=== PATIENT | male | born 1945 | race Caucasian/White ===

== ENCOUNTER 2023-09-27 12:26 | Observation (INO) | payer MEDICARE ==
[~2023-09-27] VITALS: Ht 172.7 cm; Wt 71.7 kg
[2023-09-27] MEDS ORDERED: Ondansetron 4 MG TAB PO PRN (15:10)
[2023-09-27] MEDS ORDERED: Acetaminophen 325 MG TABLET PO PRN (15:15)
[2023-09-27] MEDS ORDERED: NS 1,000 ML IV ONE ×2 (15:17→15:35)
[2023-09-27 15:54] LABS: International Normalized Ratio 1.04; Prothrombin Time Results 11.1 Sec (9.7-11.5)
[2023-09-27 16:13] LABS: IMMATURE RETIC FRACTION 17.2 % (2.3-16.0); RETIC HGB EQUIVALENT 15.4 pg (28.20-36.60); RETICULOCYTE COUNT PERCENT 1.47 % (0.50-2.50)
[2023-09-27 16:16] LABS: BASOPHILS ABSOLUTE AUTO 0.07 K/mm3 (0.00-0.23); BASOPHILS PERCENT AUTO 1 % (0-2); EOSINOPHILS PERCENT AUTO 2 % (0-6); Hematocrit 22.5 % (37.0-53.0); Hemoglobin 6.1 g/dL (13.5-17.5); IMMATURE GRAN ABSOLUTE AUTO 0.03 K/mm3 (0.00-0.10); IMMATURE GRAN PERCENT AUTO 1 % (0-1); LYMPHOCYTES ABSOLUTE AUTO 1.64 K/mm3 (0.84-5.20); LYMPHOCYTES PERCENT AUTO 31 % (21-46); MONOCYTES ABSOLUTE AUTO 0.56 K/mm3 (0.16-1.47); MONOCYTES PERCENT AUTO 11 % (4-13); Mean Corpuscular HGB 16.2 pg (26.0-34.0); Mean Corpuscular HGB Conc 27.1 g/dL (31.5-36.5); Mean Corpuscular Volume 60 fL (80-100); Mean Platelet Volume 9.4 fL (9.1-12.4); NEUTROPHILS ABSOLUTE AUTO 2.94 K/mm3 (1.96-9.15); NEUTROPHILS PERCENT AUTO 55 % (41-73); Platelet Count 304 K/mm3 (150-400); RDW Coefficient Variation 20.2 % (11.7-14.2); RDW Standard Deviation 42.4 fL (35.1-46.3); Red Blood Cell Count 3.77 M/mm3 (4.30-5.90); White Blood Cell Count 5.34 K/mm3 (4.00-11.30)
[2023-09-27] MEDS ORDERED: ZINC15 PO (16:19)
[2023-09-27] MEDS ORDERED: IBUP800 PO (16:19)
[2023-09-27] MEDS ORDERED: OMEP20ER PO (16:20)
[2023-09-27] MEDS ORDERED: B12-FOLIC ACID1 EACH PO (16:20)
[2023-09-27 16:28] VITALS: BP 148/77
[2023-09-27 16:32] LABS: Percent Saturation 1.7 % (20.0-50.0)
--- NOTE | 2023-09-27 16:49 | NUR ---
PT ADMIT FROM ED. CURRENTLY INFUSING 1 UNIT, PRBC. ALERT AND ORIENTED X4. ABLE TO MAKE NEEDS KNOWN. SPOUSE AT BEDSIDE. R/A. INDEPENDENT IN THE ROOM.
[2023-09-27 17:30] VITALS: BP 128/77
[2023-09-27 19:46] VITALS: BP 129/72
[2023-09-28 05:01] VITALS: BP 125/77
[2023-09-28 05:22] LABS: BASOPHILS ABSOLUTE AUTO 0.08 K/mm3 (0.00-0.23); BASOPHILS PERCENT AUTO 2 % (0-2); EOSINOPHILS ABSOLUTE AUTO 0.19 K/mm3 (0.00-0.68); EOSINOPHILS PERCENT AUTO 4 % (0-6); Hematocrit 25.9 % (37.0-53.0); Hemoglobin 7.2 g/dL (13.5-17.5); IMMATURE GRAN ABSOLUTE AUTO 0.01 K/mm3 (0.00-0.10); IMMATURE GRAN PERCENT AUTO 0 % (0-1); LYMPHOCYTES ABSOLUTE AUTO 1.45 K/mm3 (0.84-5.20); LYMPHOCYTES PERCENT AUTO 28 % (21-46); MONOCYTES ABSOLUTE AUTO 0.55 K/mm3 (0.16-1.47); MONOCYTES PERCENT AUTO 11 % (4-13); Mean Corpuscular HGB 17.1 pg (26.0-34.0); Mean Corpuscular HGB Conc 27.8 g/dL (31.5-36.5); Mean Corpuscular Volume 62 fL (80-100); Mean Platelet Volume 9.3 fL (9.1-12.4); NEUTROPHILS ABSOLUTE AUTO 2.82 K/mm3 (1.96-9.15); NEUTROPHILS PERCENT AUTO 55 % (41-73); Platelet Count 282 K/mm3 (150-400); RDW Coefficient Variation 21.6 % (11.7-14.2); RDW Standard Deviation 45.9 fL (35.1-46.3); Red Blood Cell Count 4.21 M/mm3 (4.30-5.90)
[2023-09-28 05:34] LABS: International Normalized Ratio 1.08; Prothrombin Time Results 11.5 Sec (9.7-11.5)
--- NOTE | 2023-09-28 05:55 | NUR ---
SHIFT SUMMARY: PATIENT FULLY ORIENTED, COOPERATIVE. NO COMPLAINTS. PATIENT SLEPT WELL.
[2023-09-28 06:02] LABS: Albumin, Blood 3.3 g/dL (3.4-5.0); Albumin/Globulin Ratio 1.1 (0.8-1.8); Bilirubin, Total 0.8 mg/dL (0.1-1.0); Bun/Creatinine Ratio 18.3 (12.0-20.0); Calcium, Blood 8.1 mg/dL (8.5-10.1); Creatinine, Blood 0.88 mg/dL (0.60-1.20); Magnesium, Blood 2.2 mg/dL (1.6-2.4); Potassium, Blood 3.8 mmol/L (3.5-5.5); Thyroid Stimulating Hormone 1.4 uIU/mL (0.360-4.800); Total Protein, Blood 6.3 g/dL (6.4-8.2)
[2023-09-28 07:25] VITALS: BP 123/72
[2023-09-28] MEDS ORDERED: Sod Ferric Gluc Complx/Sucrose 125 MG in NS 100 ML IV SCH (09:00)
[2023-09-28] MEDS ORDERED: NS 250 ML IV PRN (09:25)
[2023-09-28] MEDS ORDERED: ALBU90OI INH (11:27)
[2023-09-28] MEDS ORDERED: FERSU300 PO (11:28)
[2023-09-28] MEDS ORDERED: DOCU100 PO (11:28)
[2023-09-28] MEDS ORDERED: VITAMIN C125 MG PO (11:28)
--- NOTE | 2023-09-28 11:50 | NUR ---
DISCHARGE NOTE MR VASQUEZ WAS DISCHARGED HOME AT 1150HRS. HE WAS ASSISTED TO THE EXIT VIA WHEELCHAIR. HE DENIES ANY PAIN AT TIME OF DISCHARGE AND VOICED EAGERNESS TO GO HOME. HE VERBALISED UNDERSATANDING OF WRITTEN AND VERBAL DISCHARGE INSTRUCTIONS. PIV X 2 REMOVED, TELEMETRY REMOVED. PT HAS BEEN AMBULATING IN ROOM INDEPENDENTLY AND SAID HE IS GENERALLY FEELING BETTER.
[2023-09-29 10:55] LABS: CERULOPLASMIN 22 mg/dL (15-30)
[2023-09-29 11:01] LABS: ZINC,SERUM/PLASMA 56.1 ug/dL (60.0-120.0)
[2023-09-29 15:31] LABS: COPPER,SERUM/PLASMA 89.9 ug/dL (70.0-140.0)
== END 2023-09-28 11:49 | disposition home or self-care (01) ==
LOC: ER 12:26 → MEDS 12:27 → ENPENDDIS 09-28 11:02 → MEDS 09-28 11:49
PROVIDERS: Nurse Practitioner; ADMIT Student in an Organized Health Care Education/Training Program
DX: D50.9 Iron deficiency anemia, unspecified (principal); D72.819 Decreased white blood cell count, unspecified; J45.909 Unspecified asthma, uncomplicated; D61.818 Other pancytopenia; Z12.5 Encounter for screening for malignant neoplasm of prostate; Z13.6 Encounter for screening for cardiovascular disorders; R06.09 Other forms of dyspnea
CPT/HCPCS: 36415; 36430; 80053; 80061; 82272; 82390; 82525; 82728; 83540; 83550; 83735; 84443; 84630; 85025; 85045; 85060; 85610; 85730; 86850; 86900; 86901; 86923; 93005; 93010; 94760; 94762; 96374; 99284-25; G0103; G0378; J2916; J7030; P9016

== ENCOUNTER 2023-10-13 10:03 | Emergency (ER) | payer MEDICARE ==
[~2023-10-13] VITALS: Ht 172.7 cm; Wt 70.3 kg
[~2023-10-13 10:03] MED LIST: ALBU90OI INH; B12-FOLIC ACID1 EACH PO; DOCU100 PO; FERSU300 PO; IBUP800 PO; OMEP20ER PO; VITAMIN C125 MG PO; ZINC15 PO
[2023-10-13 10:59] LABS: BASOPHILS ABSOLUTE AUTO 0.07 K/mm3 (0.00-0.23); BASOPHILS PERCENT AUTO 2 % (0-2); EOSINOPHILS ABSOLUTE AUTO 0.12 K/mm3 (0.00-0.68); EOSINOPHILS PERCENT AUTO 3 % (0-6); Hematocrit 32.2 % (37.0-53.0); IMMATURE GRAN ABSOLUTE AUTO 0.01 K/mm3 (0.00-0.10); IMMATURE GRAN PERCENT AUTO 0 % (0-1); LYMPHOCYTES ABSOLUTE AUTO 1.66 K/mm3 (0.84-5.20); LYMPHOCYTES PERCENT AUTO 38 % (21-46); MONOCYTES ABSOLUTE AUTO 0.45 K/mm3 (0.16-1.47); MONOCYTES PERCENT AUTO 10 % (4-13); Mean Corpuscular HGB 18.7 pg (26.0-34.0); Mean Corpuscular Volume 67 fL (80-100); Mean Platelet Volume 9.2 fL (9.1-12.4); NEUTROPHILS ABSOLUTE AUTO 2.03 K/mm3 (1.96-9.15); NEUTROPHILS PERCENT AUTO 47 % (41-73); Platelet Count 388 K/mm3 (150-400); RDW Coefficient Variation 28.4 % (11.7-14.2); RDW Standard Deviation 63.2 fL (35.1-46.3); Red Blood Cell Count 4.81 M/mm3 (4.30-5.90); White Blood Cell Count 4.34 K/mm3 (4.00-11.30)
[2023-10-13 11:07] LABS: Albumin, Blood 3.7 g/dL (3.4-5.0); Albumin/Globulin Ratio 1.1 (0.8-1.8); Bilirubin, Total 0.6 mg/dL (0.1-1.0); Bun/Creatinine Ratio 16.8 (12.0-20.0); Calcium, Blood 8.8 mg/dL (8.5-10.1); Creatinine, Blood 1.01 mg/dL (0.60-1.20); Globulin, Blood 3.4 g/dL (2.2-4.0); Potassium, Blood 3.7 mmol/L (3.5-5.5); Total Protein, Blood 7.1 g/dL (6.4-8.2)
[2023-10-13] MEDS ORDERED: Aspirin 325 MG Tab PO ONE (13:45)
[2023-10-13] MEDS ORDERED: Aspir 8181 MG PO (13:46)
== END 2023-10-13 14:04 | disposition home or self-care (01) ==
LOC: ER 10:03
PROVIDERS: Student in an Organized Health Care Education/Training Program
DX: G45.9 Transient cerebral ischemic attack, unspecified (principal); D64.9 Anemia, unspecified; R29.898 Other symptoms and signs involving the musculoskeletal system; Z88.0 Allergy status to penicillin; Z79.899 Other long term (current) drug therapy
CPT/HCPCS: 70450; 70496; 70498; 80053; 82947; 85025; A9270; Q9967

== ENCOUNTER 2023-10-26 08:07 | Observation (INO) | payer MEDICARE ==
[~2023-10-26] VITALS: Ht 175.3 cm; Wt 67.5 kg
[~2023-10-26 08:07] MED LIST changes: +Aspir 8181 MG PO
[2023-10-26] MEDS ORDERED: ATOR10 PO (08:22)
[2023-10-26 08:23] LABS: BASOPHILS PERCENT AUTO 2 % (0-2); EOSINOPHILS PERCENT AUTO 3 % (0-6); IMMATURE GRAN ABSOLUTE AUTO 0.01 K/mm3 (0.00-0.10); IMMATURE GRAN PERCENT AUTO 0 % (0-1); LYMPHOCYTES ABSOLUTE AUTO 1.84 K/mm3 (0.84-5.20); LYMPHOCYTES PERCENT AUTO 30 % (21-46); MONOCYTES ABSOLUTE AUTO 0.61 K/mm3 (0.16-1.47); MONOCYTES PERCENT AUTO 10 % (4-13); Mean Platelet Volume 9.2 fL (9.1-12.4); NEUTROPHILS ABSOLUTE AUTO 3.36 K/mm3 (1.96-9.15); NEUTROPHILS PERCENT AUTO 55 % (41-73); Platelet Count 278 K/mm3 (150-400); White Blood Cell Count 6.12 K/mm3 (4.00-11.30)
[2023-10-26 08:40] LABS: Albumin, Blood 3.5 g/dL (3.4-5.0); Bilirubin, Total 0.5 mg/dL (0.1-1.0); Bun/Creatinine Ratio 12.9 (12.0-20.0); Calcium, Blood 8.8 mg/dL (8.5-10.1); Creatinine, Blood 1.01 mg/dL (0.60-1.20); Globulin, Blood 3.5 g/dL (2.2-4.0); Potassium, Blood 3.9 mmol/L (3.5-5.5)
[2023-10-26 08:45] LABS: Mean Corpuscular HGB Conc 28.2 g/dL (31.5-36.5); Mean Corpuscular Volume 71 fL (80-100); Red Blood Cell Count 5.51 M/mm3 (4.30-5.90)
[2023-10-26] MEDS ORDERED: Aspirin 325 MG Tab PO ONE (09:05)
[2023-10-26] MEDS ORDERED: Clopidogrel Bisulfate 75 MG Tab PO ONE (09:20)
[2023-10-26 12:55] VITALS: BP 114/89
[2023-10-26] MEDS ORDERED: Albuterol HFA200 ACT/6.7 GM INH INH PRN (13:25)
[2023-10-26 13:55] LABS: Source, Urine Clean Catch
[2023-10-26 14:02] LABS: Appearance, Urine Clear (Clear); Bilirubin, Urine Neg (Neg); Blood, Urine Neg (Neg); Color, Urine Yellow (P-Yellow); Glucose Qualitative, Urine Neg (Neg); Ketones, Urine Neg (Neg); Leukocyte Esterase, Urine Neg (Neg); Nitrite, Urine Neg (Neg); Protein, Urine Neg (Neg); Urobilinogen, Urine NORM (Normal)
[2023-10-26] MEDS ORDERED: Ondansetron HCl 2 MG / ML 2ML Vial IV PRN (14:50)
[2023-10-26] MEDS ORDERED: Acetaminophen 325 MG TABLET PO PRN (14:50)
[2023-10-26 15:47] LABS: CHOL/HDL RATIO 2.9; Cholesterol 131 mg/dL (50-200); HDL Cholesterol 45 mg/dL (>39); LDL/HDL RATIO 1.6; Low Density Lipoprotein Chol 72 mg/dL (0-110); Triglycerides 69 mg/dL (30-160); Very Low Density Lipoprot Chol 13 mg/dL (6-32)
[2023-10-26] MEDS ORDERED: Atorvastatin 40 MG Tab PO SCH (16:00)
--- NOTE | 2023-10-26 18:44 | NUR ---
PT PLEASANT SINCE ADMIT. HE ABLE TO FOLLOW COMMANDS. DID WELL WITH WALKING ABOUT AND MAKING TURNS ETC. HE DOES NOT HOWEVER ANSWER QUESTIONS APPROPRIATELY, ANSWERS YES NO OFTEN NOT CORRECTLY AND CANNOT TELL ME HIS AGE OR . KNOWS WOMAN IN ROOM IS HIS , BUT NOT ABLE TO TELL ME HER NAME. DID PASS SWALLOW EVAL AND DID EAT SOME DINNER. NO OTHER CONCERNS NOTED. BED IN LOW POSITION, CALL LITE IN REACH, BED ALARM ON FOR SAFETY
[2023-10-26 19:06] VITALS: BP 109/68
[2023-10-26] MEDS ORDERED: Docusate Sodium 100 MG Cap PO SCH (21:00)
[2023-10-27 04:06] VITALS: BP 116/81
--- NOTE | 2023-10-27 04:41 | NUR ---
SHIFT SUMMARY 78 YR M ADMITTED ON 10/26/23. FULL CODE. NO ACUTE CHANGES THIS SHIFT. PT IS ALERT AND APPEARS TO UNDERSTAND WHAT IS BEING SAID TO HIM BUT IS STILL UNABLE TO ANSWER SOME SIMPLE QUESTIONS ASKED OF HIM. HE KNOWS HIS NAME BUT IS STILL UNABLE TO REMEMBER HIS WIFES NAME ALTHOUGH HE WILL TELL YOU THAT SHE IS HIS . SHE HAS STAYED IN THE ROOM WITH HIM FOR THE DURATION OF THIS SHIFT. HE IS VERY PLEASANT AND SPEAKS WELL, WITH NO SLURRING DETECTED. NO NOTICEABLE FACIAL DROOPING. HE HAS SLEPT FOR MOST OF THE NIGHT. WILL CONTINUE TO MONITOR. BED IN LOW POSITION AND CALL LIGHT IN REACH.
[2023-10-27 05:07] LABS: BASOPHILS ABSOLUTE AUTO 0.08 K/mm3 (0.00-0.23); BASOPHILS PERCENT AUTO 1 % (0-2); EOSINOPHILS ABSOLUTE AUTO 0.13 K/mm3 (0.00-0.68); EOSINOPHILS PERCENT AUTO 1 % (0-6); Hemoglobin 10.5 g/dL (13.5-17.5); IMMATURE GRAN ABSOLUTE AUTO 0.02 K/mm3 (0.00-0.10); IMMATURE GRAN PERCENT AUTO 0 % (0-1); LYMPHOCYTES ABSOLUTE AUTO 1.75 K/mm3 (0.84-5.20); LYMPHOCYTES PERCENT AUTO 19 % (21-46); MONOCYTES ABSOLUTE AUTO 0.75 K/mm3 (0.16-1.47); MONOCYTES PERCENT AUTO 8 % (4-13); Mean Platelet Volume 9.4 fL (9.1-12.4); NEUTROPHILS PERCENT AUTO 70 % (41-73); Platelet Count 252 K/mm3 (150-400); White Blood Cell Count 9.03 K/mm3 (4.00-11.30)
[2023-10-27 05:25] LABS: Albumin, Blood 3.4 g/dL (3.4-5.0); Albumin/Globulin Ratio 1.1 (0.8-1.8); Bilirubin, Total 0.8 mg/dL (0.1-1.0); Bun/Creatinine Ratio 13.9 (12.0-20.0); Calcium, Blood 8.3 mg/dL (8.5-10.1); Creatinine, Blood 1.01 mg/dL (0.60-1.20); Globulin, Blood 3.1 g/dL (2.2-4.0); Potassium, Blood 3.5 mmol/L (3.5-5.5); Total Protein, Blood 6.5 g/dL (6.4-8.2)
[2023-10-27 05:36] LABS: Hematocrit 36.7 % (37.0-53.0); Mean Corpuscular HGB 20.1 pg (26.0-34.0); Mean Corpuscular HGB Conc 28.6 g/dL (31.5-36.5); Mean Corpuscular Volume 70 fL (80-100); Red Blood Cell Count 5.23 M/mm3 (4.30-5.90)
[2023-10-27] MEDS ORDERED: Omeprazole 20 MG CapCR PO SCH (06:00)
[2023-10-27] MEDS ORDERED: Aspirin 81 MG TabEC PO SCH ×2 (07:00→09:00)
[2023-10-27 07:33] VITALS: BP 117/75
[2023-10-27] MEDS ORDERED: Atorvastatin 10 MG Tab PO SCH (09:00)
[2023-10-27] MEDS ORDERED: Ferrous Sulfate 325 MG Tab PO SCH (09:00)
[2023-10-27] MEDS ORDERED: ELIQUIS5 M2 PO (15:11)
[2023-10-27] MEDS ORDERED: ATOR80 PO (15:15)
--- NOTE | 2023-10-27 18:47 | NUR ---
PATIENT ALERT AND ORIENTED TIMES THREE. VSS, NO CHEST PAIN OR DIZZINESS, OR HEADACHE NOTED. PATIENT HAD SOME EXPRESSIVE APHASIA AND RECEPTIVE APHASIA NOTED. EDUCATED PATIENT REGARDING ISCHEMIC STROKES, MEDICATION, DIET. SIGNS AND SYMPTOMS OF STROKES. PATIENT WAS STABLE UPON DISCHARGE
== END 2023-10-27 15:39 | disposition home or self-care (01) ==
LOC: ER 08:07 → MEDS 08:08 → ENPENDDIS 10-27 12:00 → MEDS 10-27 15:39
PROVIDERS: Emergency Medicine; ADMIT Internal Medicine
DX: I63.9 Cerebral infarction, unspecified (principal); J45.909 Unspecified asthma, uncomplicated; I48.91 Unspecified atrial fibrillation; K59.00 Constipation, unspecified; D50.9 Iron deficiency anemia, unspecified; Z79.82 Long term (current) use of aspirin; Z88.0 Allergy status to penicillin; Z79.899 Other long term (current) drug therapy
CPT/HCPCS: 36415; 70450; 70551; 80053; 80061; 81003; 85025; 92523; 92610; 93005; 93010; 93306; 94760; 97161; 99285-25; A9270; G0378